=== PATIENT | female | born 1950 | race Caucasian/White ===

== ENCOUNTER 2017-07-24 12:58 | Outpatient (CLI) | payer MEDICARE, BC ==
[~2017-07-24] VITALS: Ht 162.6 cm; Wt 90.7 kg
[2017-07-24] MEDS ORDERED: albuterol 2.5 MG/3 ML nebule NEB ONE (13:35)
== END 2017-07-24 23:59 | disposition home or self-care (01) ==
LOC: RT 12:58
PROVIDERS: ATTEND Internal Medicine Pulmonary Disease
DX: J44.9 Chronic obstructive pulmonary disease, unspecified (principal); R06.09 Other forms of dyspnea; J84.89 Other specified interstitial pulmonary diseases
CPT/HCPCS: 94060; 94640; 94727; 94729; 94760